=== PATIENT | female | born 1945 | race African-American/Black ===

== ENCOUNTER 2017-11-06 01:14 | Emergency (ER) | payer MEDICARE ==
[~2017-11-06] VITALS: Ht 170.2 cm; Wt 82.0 kg
[2017-11-06 05:14] LABS: BASOPHILS % 1.6 % (0.0-2.0); EOSINOPHILS % 2.9 % (0.0-5.0); HEMOGLOBIN. 14.1 g/dL (12.0-16.0); LYMPHOCYTES % 45.7 % (20.0-50.0); MEAN CORPUSCULAR HEMOGLOBIN 26.7 pg (28.0-32.0); MEAN CORPUSCULAR VOLUME 79.6 fL (81.0-99.0); MEAN PLATELET VOLUME 7.8 fl (7.4-10.4); MONOCYTES % 11.5 % (2.0-8.0); NEUTROPHILS % 38.3 % (40.0-76.0); PLATELET 303 x1000/uL (130-400); RED BLOOD CELL COUNT 5.27 mill/uL (4.2-5.4); RED CELL DISTRIBUTION WIDTH 14.1 % (11.6-14.6)
[2017-11-06 05:18] LABS: CHLORIDE 107 mEq/L (98-107)
[2017-11-06 06:30] VITALS: BP 149/92
== END 2017-11-06 07:35 | disposition home or self-care (01) ==
LOC: ER 01:14
DX: F41.9 Anxiety disorder, unspecified (principal); I10 Essential (primary) hypertension; Z88.0 Allergy status to penicillin
CPT/HCPCS: 36415; 71045; 80053; 84484; 85025; 93005; 99285